=== PATIENT | male | born 1985 | race Caucasian/White ===

== ENCOUNTER 2023-06-17 19:54 | Emergency (ER) | payer OTHER, SELFPAY ==
[2023-06-17 20:01] VITALS: PULSE 90; RESP 18; TEMP 36.8; O2SAT 96; BMI 27.1
[2023-06-17 20:06] VITALS: O2SAT 96
--- NOTE | 2023-06-17 20:17 | ED.URI1 ---
HPI - URI/Sore Throat General Chief Complaint: Upper Respiratory Infection Stated Complaint: FEVER Time Seen by Provider: 06/17/23 20:09 Source: patient Source comment: Fever and headache History of Present Illness HPI Narrative: ill for one week with sinus congestion and cough productive green phlegm. States fever at home before coming to ED. States Girlfriend has COVID19 and his son has URI. Not short of breath. No nausea or abdominal pain MD elicited complaint: Reports fever, cough, rhinorrhea and nasal congestion Related Data Allergies Allergy/AdvReac Type Severity Reaction Status Date / Time No Known Drug Allergies Allergy Verified 06/17/23 20:01 Review of Systems ROS Status of ROS 10 or more systems reviewed and unremarkable except as noted in history and below [facility] Social History Smoking status: Current some day smoker Exam Constitutional Vital Signs, click to edit/add: Last Vital Signs Temp 98.3 F 06/17/23 20:01 Pulse 90 06/17/23 20:01 Resp 18 06/17/23 20:01 Pulse Ox 96 06/17/23 20:06 O2 Del Method Room Air 06/17/23 20:06 Common normals: no apparent distress, average body habitus, oriented x3, no limitations, healthy appearing, alert and well nourished [facility] Common normals: normocephalic and head/scalp atraumatic Other: left TM bulging Eye Common normals: EOMs intact bilaterally and conjunctivae normal Other: sinus tenderness Chest Other: diffuse mild coarse exp. breath sounds Cardio Common normals: regular rate, regular rhythm, S1 normal heart sound and S2 normal heart sound GI Common normals: Normal to inspection, nondistended, normoactive bowel sounds present, soft to palpation and non-tender Extremity Common normals: normal to inspection and full ROM Neuro Common normals: oriented x3, CN's II-XII intact bilaterally, moves all extremities and no focal motor deficits Psych Appearance: grossly normal Course Vital Signs Vital signs: Vital Signs Temperature 98.3 F 06/17/23 20:01 Pulse Rate 90 06/17/23 20:01 Respiratory Rate 18 06/17/23 20:01 Pulse Oximetry 96 06/17/23 20:01 Oxygen Delivery Method Room Air 06/17/23 20:01 Temperature 98.3 F 06/17/23 20:01 Pulse Rate 90 06/17/23 20:01 Respiratory Rate 18 06/17/23 20:01 Pulse Oximetry 96 06/17/23 20:06 Oxygen Delivery Method Room Air 06/17/23 20:06 MDM - URI/Sore Throat MDM Narrative Medical decision making narrative: presents with cough , sinus pressure and drainage . exam with exp bronchial breath sounds. cxray without pneumonia and CT facial bones without sinuitis. Patient informed of the working diagnosis of Bronchitis and left otitis media. Discharged home with an albuterol inhaler to help his cough and zithromax Lab Data Labs: Lab Results 06/17/23 06/17/23 Range/Units 20:15 20:48 WBC 8.9 (4.0-11.0) 10^3/uL RBC 5.85 (4.70-6.10) 10^6/uL Hgb 15.8 (14.0-18.0) g/dL Hct 47.2 (42.0-54.0) % MCV 80.7 (80.0-94.0) fL MCH 27.0 (25.9-34.0) pg MCHC 33.5 (29.9-35.2) g/dL RDW 13.5 (11.0-15.0) % Plt Count 336 (150-450) 10^3/uL MPV 9.6 (9.5-13.5) fL Neut % (Auto) 53.3 (43.0-75.0) % Lymph % (Auto) 35.4 (20.5-60.0) % [place] % (Auto) 7.0 (1.7-12.0) % Eos % (Auto) 2.8 (0.9-7.0) % Baso % (Auto) 0.9 (0.2-2.0) % Neut # (Auto) 4.7 (1.4-6.5) 10^3/uL Lymph # (Auto) 3.1 (1.2-3.8) 10^3/uL [place] # (Auto) 0.6 (0.3-0.8) 10^3/uL Eos # (Auto) 0.3 (0.0-0.7) 10^3/uL Baso # (Auto) 0.1 (0.0-0.1) 10^3/uL Abs Immat Gran (auto) 0.05 H (0.00-0.03) 10^3/uL Imm/Tot Granulo (auto) 0.6 H (0.0-0.5) % Sodium 140 (136-145) mmol/L Potassium 4.1 (3.5-5.1) mmol/L Chloride 102 (98-107) mmol/L Carbon Dioxide 29.9 (21.0-32.0) mmol/L Anion Gap 12.2 BUN 12.0 (7.0-18.0) mg/dL Creatinine 1.28 (0.70-1.30) mg/dL Est GFR ( Amer) >60 (>=60) Est GFR (Non-Af Amer) >60 (>=60) BUN/Creatinine Ratio 9.4 Glucose 99 (74-106) mg/dL Calcium 9.6 (8.5-10.1) mg/dL Adenovirus (PCR) Not detected (NOT DETECTE) C. pneumoniae DNA (PCR) Not detected (NOT DETECTE) Coronavirus Type OC43 Not detected (NOT DETECTE) Coronavirus Type HKU1 Not detected (NOT DETECTE) Coronavirus Type 229E Not detected (NOT DETECTE) Coronavirus Type NL63 Not detected (NOT DETECTE) Human Metapneumovir PCR Not detected (NOT DETECTE) M. pneumoniae (PCR) Not detected (NOT DETECTE) Parainfluenza PCR Not detected (NOT DETECTE) Parainfluenza 2 (PCR) Not detected (NOT DETECTE) Parainfluenza 3 (PCR) Not detected (NOT DETECTE) Parainfluenza 4 (PCR) Not detected (NOT DETECTE) RSV (RT-PCR) Not detected (NOT DETECTE) Entero/Rhino (PCR) Not detected (NOT DETECTE) SARS-CoV-2 (PCR) Not detected (NOT DETECTE) Bordetella pertussis (PCR) Not detected (NOT DETECTE) B parapertussis DNA PCR Not detected (NOT DETECTE) Influenza Type A (PCR) Not detected (NOT DETECTE) Influenza Type B (PCR) Not detected (NOT DETECTE) Discharge Plan Discharge Chief Complaint: Upper Respiratory Infection Clinical Impression: Upper respiratory infection, Otitis media, Bronchitis Patient Disposition: Home, Self-Care Instructions: Ear Infection (ED), Acute Bronchitis (ED) Additional Instructions: follow up with your doctor next week for recheck Stand Alone Forms: Portal Instructions Referrals: Physician,Non-Staff, MD [Primary Care Provider] - 1 week
--- NOTE | 2023-06-17 20:20 | XR_ITS ---
[address] [address] Patient Name: WADE ALLEN MRN: [id number] date: 1985 Sex: M Assigned Patient Location: ER Current Patient Location: ER Accession/Order Number: [id number] Exam Date: 06/17/2023 21:25 Report Date: 06/17/2023 21:11 At the request of: LATOYA CERON Procedure: XR chest 2V EXAMINATION: XR chest 2V HISTORY: Cough COMPARISON: None. TECHNIQUE: PA and lateral chest x-rays FINDINGS: The lung parenchyma is free of consolidation or infiltrate. No pneumothorax or pleural effusion. The cardiac, mediastinal and hilar contours are normal. The visualized osseous structures exhibit no gross abnormality. XR/XR chest 2V IMPRESSION: No acute cardiopulmonary abnormality. Electronically authenticated by: LOVE GARCIA Date: 06/17/2023 21:11
--- NOTE | 2023-06-17 20:20 | CT_ITS ---
The [address] [address] Patient Name: WADE ALLEN MRN: [id number] date: 1985 Sex: M Assigned Patient Location: ER Current Patient Location: ER Accession/Order Number: [id number] Exam Date: 06/17/2023 21:25 Report Date: 06/17/2023 21:23 At the request of: LATOYA CERON Procedure: CT facial bones wo con EXAM: CT facial bones wo con HISTORY: Productive cough and congestion since one week COMPARISON: None. TECHNIQUE: Contiguous axial CT images of the facial bones obtained without contrast. Coronal and sagittal reconstructions performed. Dose reduction techniques were achieved by using automated exposure control and/or adjustment of mA and/or kV according to patient size and/or use of iterative reconstruction technique. FINDINGS: The paranasal sinuses demonstrate no air-fluid level. There is minimal mucosal thickening of the bilateral maxillary, bilateral sphenoid sinuses and ethmoid air cells. There is a small mucous retention cyst within the left maxillary sinus. There is soft tissue density within the left middle ear cavity and bulging of the tympanic membrane. There is no erosion of the ossicles. The right middle ear cavity is clear. There is moderate rightward bony nasal septal deviation with a small bony spur. There are no acute fracture, destructive lesion or sclerosis of bony structures. The partially visualized mastoid air cells are clear. The globes are intact bilaterally. There is no proptosis. There is no retrobulbar hematoma. Small shotty lymph nodes are noted on both sides of the visualized neck, likely reactive. The soft tissues are unremarkable. The visualized intracranial contents appear normal. CT/CT facial bones wo con IMPRESSION: Soft tissue density within the left middle ear cavity and bulging of the tympanic membrane, suggestive of left-sided acute otitis media. No evidence of acute sinusitis. Mild chronic sinusitis, as described. Electronically authenticated by: TIFFANIE MANRIQUEZ Date: 06/17/2023 21:23
[2023-06-17 20:51] LABS: Adenovirus NOT DETECTED (NOT DETECTE); Bordetella parapertussis NOT DETECTED (NOT DETECTE); Coronavirus 229E NOT DETECTED (NOT DETECTE); Coronavirus HKU1 NOT DETECTED (NOT DETECTE); Coronavirus NL63 NOT DETECTED (NOT DETECTE); Coronavirus OC43 NOT DETECTED (NOT DETECTE); Human Metapneumovirus NOT DETECTED (NOT DETECTE); Human Rhinovirus/Enterovirus NOT DETECTED (NOT DETECTE); Influenza A NOT DETECTED (NOT DETECTE); Influenza B NOT DETECTED (NOT DETECTE); Mycoplasma pneumoniae NOT DETECTED (NOT DETECTE); Parainfluenza Virus 1 NOT DETECTED (NOT DETECTE); Parainfluenza Virus 2 NOT DETECTED (NOT DETECTE); Parainfluenza Virus 3 NOT DETECTED (NOT DETECTE); Parainfluenza Virus 4 NOT DETECTED (NOT DETECTE); Respiratory Syncytial Virus NOT DETECTED (NOT DETECTE); SARS-CoV-2 NOT DETECTED (NOT DETECTE)
[2023-06-17 20:59] LABS: Basophils Absolute Auto 0.1 10^3/uL (0.0-0.1); Basophils Percent Auto 0.9 % (0.2-2.0); Eosinophils Absolute Auto 0.3 10^3/uL (0.0-0.7); Eosinophils Percent Auto 2.8 % (0.9-7.0); Hematocrit 47.2 % (42.0-54.0); Hemoglobin 15.8 g/dL (14.0-18.0); Immature Granulocytes Abs Auto 0.05 10^3/uL (0.00-0.03); Immature Granulocytes Pct Auto 0.6 % (0.0-0.5); Lymphocytes Absolute Auto 3.1 10^3/uL (1.2-3.8); Lymphocytes Percent Auto 35.4 % (20.5-60.0); Mean Corpuscular HGB Conc 33.5 g/dL (29.9-35.2); Mean Corpuscular Volume 80.7 fL (80.0-94.0); Mean Platelet Volume 9.6 fL (9.5-13.5); Monocytes Absolute Auto 0.6 10^3/uL (0.3-0.8); Neutrophils Absolute Auto 4.7 10^3/uL (1.4-6.5); Neutrophils Percent Auto 53.3 % (43.0-75.0); Platelet Count 336 10^3/uL (150-450); Red Blood Count 5.85 10^6/uL (4.70-6.10); Red Cell Distribution Width 13.5 % (11.0-15.0); White Blood Count 8.9 10^3/uL (4.0-11.0)
[2023-06-17 21:09] LABS: Anion Gap 12.2; BUN Creatinine Ratio 9.4; Calcium 9.6 mg/dL (8.5-10.1); Carbon Dioxide 29.9 mmol/L (21.0-32.0); Chloride 102 mmol/L (98-107); Estimated GFR (African America >60 (>=60); Estimated GFR (Non-African Ame >60 (>=60); Glucose 99 mg/dL (74-106); Potassium 4.1 mmol/L (3.5-5.1); Sodium 140 mmol/L (136-145)
[2023-06-17] MEDS: AZITHROMYCIN 250 MG TABLET 500 MG PO (22:16)
[2023-06-17] MEDS: ALBUTEROL SULFATE 200 PUFF/6.7 GM INHALER IH (22:17)
== END 2023-06-17 22:23 | disposition home or self-care (01) ==
PROVIDERS: Emergency Provider Internal Medicine
DX: J40 Bronchitis, not specified as acute or chronic (principal); H66.92 Otitis media, unspecified, left ear; J06.9 Acute upper respiratory infection, unspecified; F17.210 Nicotine dependence, cigarettes, uncomplicated; Z20.822 Contact with and (suspected) exposure to COVID-19
CPT/HCPCS: 0202U; 36415; 70486; 71046; 80048; 85025; 99285

== ENCOUNTER 2023-09-07 13:18 | Emergency (ER) | payer OTHER, SELFPAY ==
[2023-09-07 13:21] VITALS: BP 149/95; PULSE 110; RESP 18; TEMP 36.8; O2SAT 98; BMI 32.5
--- OUTSIDE RECORDS SUMMARY | 2023-09-07 13:37 | XMS_ITS | CCD ---
Author Name Unknown Address [address] [place] [address] Organization [facility] Care Team Providers Care Land Development Manager Name Role Phone PAMELA, DR BERNADETTE Juarez Consulting Unavailabl e REQUEST, DR ORR LISTED Primary Care Unavaila brynn SANTIAGO, DR BERNADETTE Juarez Attending Unavailabl e PAMELA, DR BERNADETTE Juarez Admitting Unavailabl e STACI, DR EDDIE Young Consulting Unavailable Nola Proctor Unavailable Cassie Herring Unavailable Hailey Bustamante Unavailable Medications Current Medications Medication Drug Class(es) Dates Sig (Normalized) Sig (Original) amoxicillin 875 mg oral tablet (1 source) Penicillin-class Antibacterial Start: 05-06-2022 take 1 tablet by mouth every twelve hours Amoxicillin 875 MG 1 capsule Orally Twice a day for 7 day(s) Apr, Active ciprofloxacin 3 mg/ml / dexamethasone 1 mg/ml otic suspension (1 source) Corticosteroid, Quinolone Antimicrobial Start: 05-13-2022 Ciprodex 0.3-0.1 % 4 drops into affected ear Otic Twice a day for 7 days Apr, Active fluticasone propionate 0.05 mg/actuat metered dose nasal spray (2 sources) Corticosteroid Start: 05-06-2022 take 1 spray(s) nasal route once daily Flonase Allergy Relief 50 MCG/ACT 1 spray in each nostril Nasally Once a day for 14 day(s) Apr, Active Problems Active Problems Problem Classification Problem Date Documented Date Episodic/Chronic Fever of unknown origin (1 source) Fever, unspecified; Translations: [FEVER UNSPECIFIED] Onset: 03-26-2021 Episodic Immunizations and screening for infectious disease (5 sources) Contact with and (suspected) exposure to other viral communicable diseases; Translations: [Contact with and (suspected) exposure to other viral communicable diseases] Onset: 04-11-2022 Resolved: 04-11-2022 Episodic Other ear and sense organ disorders (1 source) Unspecified acute noninfective otitis externa, left ear Episodic Other lower respiratory disease (3 sources) Cough; Translations: [COUGH] Onset: 03-24-2021 Episodic Otitis media and related conditions (1 source) Other acute nonsuppurative otitis media, left ear Episodic Substance-related disorders (1 source) Cannabis use, unspecified, uncomplicated; Translations: [CANNABIS USE UNS UNCOMPLICATED] Onset: 03-26-2021 Episodic Viral infection (1 source) COVID-19; Translations: [COVID-19] Onset: 03-26-2021 Past or Other Problems Problem Classification Problem Date Documented Da te Episodic/Chronic Other upper respiratory infections (1 source) Acute upper respiratory infection, unspecified Onset: 04-11-2022 Resolved: 04-11-2022 Episodic Results Test Name Value Interpretation Reference Range Facility COVID Quick Testingon 2021 Result Negative [facility] Other COVID Quick Testingon 2021 Result Negative [facility] Other SYMPTOMATIC COVID-19 ANTIGEN on 03-24-2021 EUA Statement SEE BELOW Normal [facility] Comment on above: Result Comment: This test has not been F DA cleared or approved, but has been authorized by the FDA under an Emergency Use Authorization (EUA) for use by authorized laboratories certified under CLIA that meet the requirements to perform moderate or high complexity testing. This test has been authorized only for the detection of proteins from SARS-CoV-2, not for any other viruses or pathogens. The emergency use of this test is authorized for the duration of the declaration that circumstances exist justifying the authorization of emergency use of in vitro diagnostic tests for detection and/or diagnosis of Covid-19 under section 564(b)(1) of the Act, 21 U.S.C. 360bbb-3(b)(1), unless the declaration is terminated or authorization is revoked sooner. Performed By: #### C VDAGS #### [facility] [address] [place] [address] Sapphire Velazquez SARS-CoV-2 (COVID-19) RNA ALINA+probe Ql (Unsp spec) Positive Invalid Interpretation Code NEGATIVE [facility] Comment on above: Performed By: #### CVDAGS #### [facility] [address] [address] Saphpire Velazquez XR CHEST 1 Von 03-24-2021 XR CHEST 1 V EXAMINATION: XR CHEST 1 V HISTORY: SHORTNESS OF BREATH , fever, chills, aches COMPARISON: No relevant comparison available. FINDINGS: LUNGS: No significant pulmonary parenchymal abnormalities. VASCULATURE: No increased pulmonary vasculature. PLEURA: No pneumothorax, effusion, or pleural thickening. CARDIAC: No cardiomegaly or cardiac silhouette abnormality. MEDIASTINUM: No visible mass or adenopathy. BONES: No fracture or visible bone lesion. OTHER: Negative. IMPRESSION: 1. No acute cardiopulmonary process. Electronically authenticated by: EDDIE SMALL Date: 2021-03-24 12:56 Normal [facility] Vital Signs Date Time Vital Sign Value Performing Clinician Facility 05-13-2022 19:10-0400 Body height 177.8 cm Hailey Bustamante Other [facility] Other 05-13-2022 19:10-0400 Body mass index (BMI) [Ratio] 33.69 kg/m2 Hailey Bustamante Other [facility] Other 05-13-2022 19:10-0400 Body temperature 98.2 [degF] Hailey Bustamante Other [facility] Other 05-13-2022 19:10-0400 Body weight 106.51 kg Hailey Bustamante Other [facility] Other 05-13-2022 19:10-0400 Diastolic blood pressure 87 mm[Hg] Hailey Bustamante Other [facility] Other 05-13-2022 19:10-0400 Respiratory rate 18 /min Hailey Bustamante Other [facility] Other 05-13-2022 19:10-0400 SaO2% (BldA) [Mass fraction] 99 % Hailey Bustamante Other [facility] Other 05-13-2022 19:10-0400 Systolic blood pressure 134 mm[Hg] Hailey Bustamante Other [facility] Other 05-06-2022 19:20-0400 Body height 177.8 cm Cassie Herring Other [facility] Other 05-06-2022 19:20-0400 Body mass index (BMI) [Ratio] 33 kg/m2 Cassie Herring Other [facility] Other 05-06-2022 19:20-0400 Body temperature 98.9 [degF] Cassie Herring Other [facility] Other 05-06-2022 19:20-0400 Body weight 104.33 kg Cassie Herring Other [facility] Other 05-06-2022 19:20-0400 Respiratory rate 18 /min Cassie Herring Other [facility] Other 05-06-2022 19:20-0400 SaO2% (BldA) [Mass fraction] 98 % Cassie Herring Other [facility] Other 04-11-2022 19:30-0400 Body height 177.8 cm Nola Proctor Other [facility] Other 04-11-2022 19:30-0400 Body mass index (BMI) [Ratio] 30.85 kg/m2 Nola Proctor Other [facility] Other 04-11-2022 19:30-0400 Body weight 97.52 kg Nola Friasmond Other [facility] Other Encounters Encounter Date Encounter Type Care Provider Facility Start: 05-13-2022 End: 05-13-2022 ambulatory Hailey Bustamante Other [facility] Other Start: 05-13-2022 Office outpatient vi sit 15 minutes Hailey Bustamante [facility] Start: 05-06-2022 End: 05-06-2022 ambulatory Cassie Herring Other [facility] Other Start: 05-06-2022 Office outpatient vi sit 25 minutes Cassie Herring [facility] Start: 04-11-2022 End: 04-11-2022 ambulatory Noal Proctor Other [facility] Other Start: 04-11-2022 Office outpatient ne w 20 minutes Nola Proctor [facility] Start: 03-24-2021 End: 03-24-[address] BERNADETTE SANTIAGO Facility: Payers Date Payer Category Payer Unknown [id number] 1959 Self-pay [id number] Unknown [id number] Social History Date Type Detail Facility Sex Assigned At [facility] Other Evaluation note 05-13-2022 Note Date & Type Note Facility 05-13-2022 Evaluation note Encounter Date Diagnosis Assessment Notes Apr, Acute otitis externa of left ear, unspecified type (ICD-10 - H60.502) reviewed known allergies c pt, take rx as directed. otc pain relievers prn. dry warm compresses to affected ear. nothing in affected ear or submerging head under water until resolution of s/s. immediate eval if warning s/s fevers, intractable pain, loss of hearing, tinnitus, bloody or purulent drainage, which were discussed with pt while in clinic. otherwise f/u c PCP in 3-4 days if s/s persists or worsens. [facility] Other Evaluation note 05-06-2022 Note Date & Type Note Facility 05-06-2022 Evaluation note Encounter Date Diagnosis Assessment Notes Apr, Contact with and (suspected) exposure to other viral communicable diseases (ICD-10 - Z20.828) Apr, Acute otitis media with effusion of left ear (ICD-10 - H65.192) Advised patient that rapid COVID antigen test today in office was negative. Advised to take antibiotics as directed, complete entire course even if feeling better. Use rx of Flonase and OTC Zyrtec as directed. Supportive care, Tylenol/Motrin as needed for aches/fever, warm compress to affected ear, push fluids and rest. Follow up with PCP if symptoms do not improve in the next 2-3 days. Immediate eval for severe ear pain, severe headache, neck pain/stiffness , pain, erythema, or redness behind the ear, fever, N/V, hearing loss, fever, or any other new or concerning symptoms. Patient verbalizes understanding and is agreeable to treatment plan [facility] Other Evaluation note 04-11-2022 Note Date & Type Note Facility 04-11-2022 Evaluation note Encounter Date Diagnosis Assessment Notes Mar, Contact with and (suspected) exposure to other viral communicable diseases (ICD-10 - Z20.828) Mar, Viral upper respiratory infection (ICD-10 - J06.9) Viral upper respiratory infection: adult home care material was printed Drink plenty fluids, get plenty of rest. Take Tylenol or Motrin for aches pains or fevers. Follow-up with your family physician if no improvement in 2 to 3 days [facility] Other Summary Purpose Family History No Family History Records Found Advance Directives No Advanced Directives Records Found Additional Source Comments (unrecognized sect ion and content) No Status Records Found INFORMATION SOURCE (unrecogn ized section and content) DATE CREATED AUTHOR 03/27/2021 The [facility] Ho[facility] REASON FOR VISIT (unrecogniz ed section and content) BLACK EQUINOX, H/A, SORE THR OAT, B/A, FEVER, POSITIVE HOME TESTSINUS INFECTION EAR PRESUREleft ear pain FOR RECORDS PERTAINING TO PATIENTS WHO ARE OR HAVE BEEN ENROLLED IN A CHEMICAL DEPENDENCY/SUBSTANCEABUSE PROGRAM, SOME INFORMATION MAY BE OMITTED. This clinical summary was aggregated from multiple sources. Caution should be exercised in using it in the provision of clinical care. This summary normalizes information from multiple sources, and as a consequence, information in this document may materially change the coding, format and clinical context of patient data. In addition, data may be omitted in some cases. CLINICAL DECISIONS SHOULD BE BASED ON THE PRIMARY CLINICAL RECORDS. [employer] provides no warranty or guarantee of the accuracy or completeness of information in this document.
--- NOTE | 2023-09-07 13:39 | ED.URI1 ---
HPI - URI/Sore Throat General Chief Complaint: Upper Respiratory Infection Stated Complaint: sore throat Time Seen by Provider: 09/07/23 13:25 Source: patient Limitations: no limitations History of Present Illness HPI Narrative: Patient is a 38-year-old male who presents to the emergency department for 2-day history of sore throat and bilateral ear pain. He is concerned he may have strep throat because his girlfriend had it a month ago. He has had no objective fevers but states he had hot and cold chills this afternoon after laying in front of a space heater. He denies any significant congestion or cough. No medications taken prior to arrival. Related Data Previous Rx's Medication Instructions Recorded cetirizine 5 mg-pseudoephedrine ER 1 tab PO BID #10 tabs 09/07/23 120 mg tablet,extended release,12hr (Zyrtec-D) Allergies Allergy/AdvReac Type Severity Reaction Status Date / Time No Known Drug Allergies Allergy Verified 09/07/23 13:21 Review of Systems ROS Constitutional Denies: fever or chills Ears, nose, mouth, and throat Reports: throat pain and ear pain; Denies: nasal congestion Cardiovascular Denies: chest pain Respiratory Denies: shortness of breath or cough Gastrointestinal Reports: diarrhea; Denies: nausea or vomiting Musculoskeletal Denies: back pain Integumentary/Breast Denies: rash Neurological Denies: headache Hematologic/Lymphatic Denies: easy bruising or easy bleeding [facility] Social History Smoking status: Current some day smoker Exam Narrative Exam Narrative: Gen.: Awake, alert, in no distress Head: Normocephalic, atraumatic ENT: Moist mucous membranes, Bilateral TMs are bulging with no erythema or injection. Mild tonsillar edema that is symmetric, no exudate. Uvula midline with airway widely open and patent. No trismus or drooling. Clear speech. Respiratory: No respiratory distress, lungs clear bilaterally Cardio: Regular rate and rhythm Extremities: Moves extremities equally Psych: Normal mood and affect Neuro: No focal neuro deficit Skin: Warm, dry, intact Constitutional Vital Signs, click to edit/add: Last Vital Signs Temp 98.2 F 09/07/23 13:21 Pulse 99 H 09/07/23 14:07 Resp 20 09/07/23 14:07 BP 138/88 09/07/23 14:07 Pulse Ox 98 09/07/23 14:07 O2 Del Method Room Air 09/07/23 13:21 Course Vital Signs Vital signs: Vital Signs Temperature 98.2 F 09/07/23 13:21 Pulse Rate 110 H 09/07/23 13:21 Respiratory Rate 18 09/07/23 13:21 Blood Pressure 149/95 H 09/07/23 13:21 Pulse Oximetry 98 09/07/23 13:21 Oxygen Delivery Method Room Air 09/07/23 13:21 Temperature 98.2 F 09/07/23 13:21 Pulse Rate 99 H 09/07/23 14:07 Respiratory Rate 20 09/07/23 14:07 Blood Pressure 138/88 09/07/23 14:07 Pulse Oximetry 98 09/07/23 14:07 Oxygen Delivery Method Room Air 09/07/23 13:21 MDM - URI/Sore Throat MDM Narrative Medical decision making narrative: Swabs negative for strep, COVID, influenza.Patient treated with Decadron in the ER. He is discharged home with viral instructions for pharyngitis and upper respiratory infection. He is given BMX solution and Zyrtec-D for home. Follow-up with PCP and return to the ER if symptoms change or worsen Medical Records Attestation: I reviewed the patient's medical records. Lab Data Attestation: I reviewed the patient's lab results. Labs: Lab Results 09/07/23 09/07/23 Range/Units 13:26 13:29 Influenza Type A Ag Negative Influenza Type B Ag Negative SARS-CoV-2 Ag (CV2AG) Negative (NEGATIVE) Streptococcus Screen Negative Discharge Plan Discharge Chief Complaint: Upper Respiratory Infection Clinical Impression: Upper respiratory infection, Pharyngitis Patient Disposition: Home, Self-Care Time of Disposition Decision: 14:05 Condition: Good Prescriptions / Home Meds: New cetirizine-pseudoephedrine [Zyrtec-D] 5-120 mg tablet extended release 12 hr 1 tab PO BID Qty: 10 0RF Instructions: Pharyngitis (ED), Upper Respiratory Infection (ED) Stand Alone Forms: Portal Instructions Referrals: Physician,Non-Staff, MD [Primary Care Provider] - 1 week Discharge Date/Time: 09/07/23 14:11
[2023-09-07] MEDS: DEXAMETHASONE SOD PHOS 10 MG/ML VIAL PO (13:47)
[2023-09-07 13:52] LABS: Influenza Virus A Antigen Negative
[2023-09-07 13:53] LABS: Influenza Virus B Antigen Negative; Internal Control Within Normal Limits; SARS-CoV-2 Ag NEGATIVE (NEGATIVE)
[2023-09-07 14:02] LABS: Internal Control Within Normal Limits; Strep A Antigen Screen Negative
[2023-09-07 14:07] VITALS: BP 138/88; PULSE 99; RESP 20; O2SAT 98
== END 2023-09-07 14:11 | disposition home or self-care (01) ==
PROVIDERS: Physician Assistant; Emergency Provider Emergency Medicine
DX: J02.9 Acute pharyngitis, unspecified (principal); J06.9 Acute upper respiratory infection, unspecified; F17.200 Nicotine dependence, unspecified, uncomplicated
CPT/HCPCS: 87070; 87804; 87811; 87880; 99283; J1100

== ENCOUNTER 2024-01-31 06:56 | Emergency (ER) | payer SELFPAY ==
[2024-01-31 07:01] VITALS: BP 156/92; PULSE 83; TEMP 36.7; O2SAT 98; BMI 31.2
--- OUTSIDE RECORDS SUMMARY | 2024-01-31 07:06 | XMS_ITS | CCD ---
Author Organization [facility] Care Team Providers Care Service Superintendent Name Role Phone PAMELA, DR BERNADETTE Juarez Consulting Unavailabl e REQUEST, DR ORR LISTED Primary Care Aime SANTIAGO, DR BERNADETTE Juarez Attending Unavailabl e [...] Facility COVID Quick Testingon 2021 Result Negative [facility] Other COVID Quick Testingon 2021 Result Negative [facility] Other SYMPTOMATIC COVID-19 ANTIGEN on 03-24-2021 EUA Statement SEE BELOW Normal [facility] Comment on above: Result Comment: This [...] sooner. Performed By: #### C VDAGS #### [facility] [address] [place] [address] Sapphire Velazquez SARS-CoV-2 (COVID-19) RNA ALINA+probe Ql (Unsp spec) Positive Invalid Interpretation Code NEGATIVE [facility] Comment on above: Performed By: #### CVDAGS #### [facility] [address] [id number] Sapphire Velazquez XR CHEST 1 Von 03-24-2021 XR [...] EDDIE SMALL Date: 2021-03-24 12:56 Normal [facility] Vital Signs Date Time Vital Sign Value Performing Clinician Facility 05-13-2022 19:10-0400 Body height 177.8 cm Hailey Bustamante Other [facility] Other 05-13-2022 19:10-0400 Body mass index (BMI) [Ratio] 33.69 kg/m2 Hailey Bustamante Other [facility] Other 05-13-2022 19:10-0400 Body temperature 98.2 [degF] Hailey Bustamante Other [facility] Other 05-13-2022 19:10-0400 Body weight 106.51 kg Hailey Bustamante Other [facility] Other 05-13-2022 19:10-0400 Diastolic blood pressure 87 mm[Hg] Hailey Bustamante Other [facility] Other 05-13-2022 19:10-0400 Respiratory rate 18 /min Hailey Bustamante Other [facility] Other 05-13-2022 19:10-0400 SaO2% (BldA) [Mass fraction] 99 % Hailey Bustamante Other [facility] Other 05-13-2022 19:10-0400 Systolic blood pressure 134 mm[Hg] Hailey Bustamante Other [facility] Other 05-06-2022 19:20-0400 Body height 177.8 cm Cassie Herring Other [facility] Other 05-06-2022 19:20-0400 Body mass index (BMI) [Ratio] 33 kg/m2 Cassie Herring Other [facility] Other 05-06-2022 19:20-0400 Body temperature 98.9 [degF] Cassie Herring Other [facility] Other 05-06-2022 19:20-0400 Body weight 104.33 kg Cassie Herring Other [facility] Other 05-06-2022 19:20-0400 Respiratory rate 18 /min Cassie Herring Other [facility] Other 05-06-2022 19:20-0400 SaO2% (BldA) [Mass fraction] 98 % Cassie Herring Other [facility] Other 04-11-2022 19:30-0400 Body height 177.8 cm Nola Proctor Other [facility] Other 04-11-2022 19:30-0400 Body mass index (BMI) [Ratio] 30.85 kg/m2 Nola Proctor Other [facility] Other 04-11-2022 19:30-0400 Body weight 97.52 kg Nola Proctor Other [facility] Other Encounters Encounter Date Encounter Type Care Provider Facility Start: 05-13-2022 End: 05-13-2022 ambulatory Hailey Bustamante Other [facility] Other Start: 05-13-2022 Office outpatient vi sit 15 minutes Hailey Bustamante [facility] Start: 05-06-2022 End: 05-06-2022 ambulatory Cassie Herring Other [facility] Other Start: 05-06-2022 Office outpatient vi sit 25 minutes Cassie Herring [facility] Start: 04-11-2022 End: 04-11-2022 ambulatory Nola Proctor Other [facility] Other Start: 04-11-2022 Office outpatient ne w 20 minutes Nolakari Proctor [facility] Start: 03-24-2021 End: 03-24-[address] BERNADETTE SANTIAGO Facility:[facility] Payers Date Payer Category Payer Unknown [id number] 1959 Self-pay [id number] Unknown [id number] Social History Date Type Detail Facility Sex Assigned At [facility] Other Evaluation note 05-13-2022 Note Date & [...] 3-4 days if s/s persists or worsens. [facility] Other Evaluation note 05-06-2022 Note Date & [...] understanding and is agreeable to treatment plan [facility] Other Evaluation note 04-11-2022 Note Date & [...] no improvement in 2 to 3 days [facility] Other Summary Purpose Family History No Family History Records Found Advance Directives No Advanced Directives Records Found Additional Source Comments (unrecognized sect ion and content) No Status Records Found INFORMATION SOURCE (unrecogn ized section and content) DATE CREATED AUTHOR 03/27/2021 [facility] hern[facility] REASON FOR VISIT (unrecogniz ed section and [...] BE BASED ON THE PRIMARY CLINICAL RECORDS. [employer] provides no warranty or guarantee of the accuracy or completeness of information in this document.
--- NOTE | 2024-01-31 07:28 | CT_ITS ---
[address] [address] Patient Name: WADE ALLEN MRN: [id number] date: 1985 Sex: M Assigned Patient Location: ER Current Patient Location: ER Accession/Order Number: [id number] Exam Date: 01/31/2024 07:38 Report Date: 01/31/2024 08:06 At the request of: LISS TORRES Procedure: CT lumbar spine wo con EXAMINATION: CT pelvis wo con, CT lumbar spine wo con HISTORY: fall, pelvic pain COMPARISON: No relevant comparison available. TECHNIQUE: Multi-planar CT images were created without IV contrast. Dose reduction techniques were achieved by using automated exposure control and/or adjustment of mA and/or kV according to patient size and/or use of iterative reconstruction technique. Pelvis: FINDINGS: URINARY BLADDER: No visible focal wall thickening, lesion, or calculus. LYMPH NODES: No adenopathy. BOWEL: No abnormality of the visible bowl. PELVIC ORGANS: No visible mass. Pelvic organs appropriate for patient age. ANTERIOR WALL: No hernia. BONES: No bone lesion or fracture. OTHER: Negative. CT/CT lumbar spine wo con IMPRESSION: No acute traumatic abnormality Lumbar spine: FINDINGS: PARASPINAL AREA: Normal with no visible mass. DISCS: Disc space narrowing L5-S1 mild posterior disc/osteophyte complex. BONES: Normal alignment with no acute fracture or spondylolisthesis. Mild degenerative spondylosis and facet osteoarthropathy OTHER: Negative. IMPRESSION: No acute traumatic abnormality Electronically authenticated by: LOVE CERVANTES Date: 01/31/2024 08:06
--- NOTE | 2024-01-31 07:28 | CT_ITS ---
[address] [address] Patient Name: WADE ALLEN MRN: [id number] date: 1985 Sex: M Assigned Patient Location: ER Current Patient Location: ER Accession/Order Number: [id number] Exam Date: 01/31/2024 07:38 Report Date: 01/31/2024 08:06 At the request of: LISS TORRES Procedure: CT pelvis wo con EXAMINATION: CT pelvis wo con, CT lumbar spine wo con HISTORY: fall, pelvic pain COMPARISON: No relevant comparison available. TECHNIQUE: Multi-planar CT images were created without IV contrast. Dose reduction techniques were achieved by using automated exposure control and/or adjustment of mA and/or kV according to patient size and/or use of iterative reconstruction technique. Pelvis: FINDINGS: URINARY BLADDER: No visible focal wall thickening, lesion, or calculus. LYMPH NODES: No adenopathy. BOWEL: No abnormality of the visible bowl. PELVIC ORGANS: No visible mass. Pelvic organs appropriate for patient age. ANTERIOR WALL: No hernia. BONES: No bone lesion or fracture. OTHER: Negative. CT/CT pelvis wo con IMPRESSION: No acute traumatic abnormality Lumbar spine: FINDINGS: PARASPINAL AREA: Normal with no visible mass. DISCS: Disc space narrowing L5-S1 mild posterior disc/osteophyte complex. BONES: Normal alignment with no acute fracture or spondylolisthesis. Mild degenerative spondylosis and facet osteoarthropathy OTHER: Negative. IMPRESSION: No acute traumatic abnormality Electronically authenticated by: LOVE CERVANTES Date: 01/31/2024 08:06
--- NOTE | 2024-01-31 07:39 | ED.GENADUL1 ---
HPI HPI - General Adult General Chief complaint: Extremity Injury, Lower Stated complaint: LEFT HIP PAIN Time Seen by Provider: 01/31/24 07:13 Source: patient Mode of arrival: walk-in Limitations: no limitations History of Present Illness HPI narrative: Patient presents to ED complaining of left buttock pain. He states he fell on Monday in the shower onto his left hip and buttock area. He states he initially had some low back pain with it and pain in the hip. States the low back pain has gotten better but he still has a lot of buttock and hip pain. He said the pain travels down to the back of his knee and he does get muscle spasms with this as well. Normal distal pulses and sensation. Patient is able to ambulate but does have pain that comes and goes. He thought this would get better but it just has not so he came in for evaluation. He denies any other injury in the fall. No external bruises evident. Related Data Previous Rx's ?Medication ?Instructions ?Recorded methylprednisolone 4 mg tablets in 4 mg PO DAILY #21 ea 01/31/24 a dose pack (Medrol (Darryl)) Allergies Allergy/AdvReac Type Severity Reaction Status Date / Time No Known Drug Allergies Allergy Verified 01/31/24 07:03 Opioid HPI Opioid Management Most Recent Opioid Data: Last Pain Scale 5 01/31/24 07:10 Review of Systems ROS Status of ROS 10 or more systems reviewed and unremarkable except as noted in history and below [facility] Social History Smoking status: Current some day smoker Exam Narrative Exam Narrative: General: alert, no acute distress Cardiovascular: regular rate and rhythm, normal peripheral perfusion. Respiratory: Lungs CTA, respirations non labored. Extremities: no deformity, Tenderness to palpation in the left ischial spine and piriformis area. Normal distal pulses and sensation and strength in the left lower extremity. No abdominal pain Neurological: oriented x 4, LOC appropriate for age. Constitutional Vital Signs, click to edit/add: Last Vital Signs Temp 98.0 F 01/31/24 07:01 Pulse 83 01/31/24 07:01 Resp 16 01/31/24 07:01 BP 156/92 H 01/31/24 07:01 Pulse Ox 98 01/31/24 07:01 O2 Del Method Room Air 01/31/24 07:01 Course Vital Signs Vital signs: Vital Signs Temperature 98.0 F 01/31/24 07:01 Pulse Rate 83 01/31/24 07:01 Respiratory Rate 16 01/31/24 07:01 Blood Pressure 156/92 H 01/31/24 07:01 Pulse Oximetry 98 01/31/24 07:01 Oxygen Delivery Method Room Air 01/31/24 07:01 Temperature 98.0 F 01/31/24 07:01 Pulse Rate 83 01/31/24 07:01 Respiratory Rate 16 01/31/24 07:01 Blood Pressure 156/92 H 01/31/24 07:01 Pulse Oximetry 98 01/31/24 07:01 Oxygen Delivery Method Room Air 01/31/24 07:01 Medical Decision Making MDM Narrative Medical decision making narrative: Patient CTs show no acute abnormality. No vertebral body compression fracture, no muscle hematoma, no other fracture identified. Will send the patient home on a [employer] Dosep[employer]. Instructed to take Tylenol Motrin and use heating pads. Patient is comfortable care plan for Differential Diagnosis Differential Diagnosis: Compression fracture, hematoma, pelvic fracture Imaging Data CT scan - pelvis: Radiologist's impression: ITS Impressions Lumbar Spine CT 01/31/24 07:28 IMPRESSION: No acute traumatic abnormality Lumbar spine: FINDINGS: PARASPINAL AREA: Normal with no visible mass. DISCS: Disc space narrowing L5-S1 mild posterior disc/osteophyte complex. BONES: Normal alignment with no acute fracture or spondylolisthesis. Mild degenerative spondylosis and facet osteoarthropathy OTHER: Negative. IMPRESSION: No acute traumatic abnormality Electronically authenticated by: LOVE CERVANTES Date: 01/31/2024 08:[address] 01/31/24 07:28 IMPRESSION: No acute traumatic abnormality Lumbar spine: FINDINGS: PARASPINAL AREA: Normal with no visible mass. DISCS: Disc space narrowing L5-S1 mild posterior disc/osteophyte complex. BONES: Normal alignment with no acute fracture or spondylolisthesis. Mild degenerative spondylosis and facet osteoarthropathy OTHER: Negative. IMPRESSION: No acute traumatic abnormality Electronically authenticated by: LOVE CERVANTES Date: 01/31/2024 08:06 Discharge Plan Discharge Stand Alone Forms: Portal Instructions Chief Complaint: Extremity Injury, Lower Clinical Impression: Sciatic leg pain, Contusion of hip Patient Disposition: Home, Self-Care Time of Disposition Decision: 08:15 Condition: Good Mode of Transportation: Private Vehicle Prescriptions / Home Meds: New methylprednisolone [Medrol (Darryl)] 4 mg tablets,dose pack 4 mg PO DAILY Qty: 21 0RF Print Language: Kenyan Instructions: Sciatica (ED), Hip Contusion (ED) Referrals: Physician,Non-Staff, MD [Primary Care Provider] - 1 week
[2024-01-31 08:37] VITALS: BP 144/86; PULSE 88; O2SAT 100
== END 2024-01-31 08:38 | disposition home or self-care (01) ==
PROVIDERS: Emergency Provider Emergency Medicine
DX: S70.02XA Contusion of left hip, initial encounter (principal); M54.30 Sciatica, unspecified side; W18.2XXA Fall in (into) shower or empty bathtub, initial encounter; F17.200 Nicotine dependence, unspecified, uncomplicated
CPT/HCPCS: 72131; 72192; 99284

== ENCOUNTER 2024-07-16 15:29 | Emergency (ER) | payer OTHER, SELFPAY ==
[2024-07-16 15:33] VITALS: BP 147/100; PULSE 87; TEMP 36.6; O2SAT 98; BMI 31.2
--- OUTSIDE RECORDS SUMMARY | 2024-07-16 15:43 | XMS_ITS | CCD ---
Author Organization [facility] Care Team Providers Care Bacon Skinner Name Role Phone PAMELA, DR BERNADETTE Juarez Consulting Unavailabl e REQUEST, DR ORR LISTED Primary Care Aime SANTIAOG, DR BERNADETTE Juarez Attending Unavailabl e PAMELA, [...] Facility COVID Quick Testingon 2021 Result Negative [facility] Other COVID Quick Testingon 2021 Result Negative [facility] Other SYMPTOMATIC COVID-19 ANTIGEN on 03-24-2021 EUA Statement SEE BELOW Normal [facility] Comment on above: Result Comment: This test [...] sooner. Performed By: #### C VDAGS #### [facility] [address] [place] [address] Sapphire Velazquez SARS-CoV-2 (COVID-19) RNA ALINA+probe Ql (Unsp spec) Positive Invalid Interpretation Code NEGATIVE [facility] Comment on above: Performed By: #### CVDAGS #### [facility] [address] [id number] Sapphire Velazquez XR CHEST 1 Von 03-24-2021 [...] EDDIE SMALL Date: 2021-03-24 12:56 Normal [facility] Vital Signs Date Time Vital Sign Value Performing Clinician Facility 05-13-2022 19:10-0400 Body height 177.8 cm Hailey Bustamante Other [facility] Other 05-13-2022 19:10-0400 Body mass index (BMI) [Ratio] 33.69 kg/m2 Hailey Bustamante Other [facility] Other 05-13-2022 19:10-0400 Body temperature 98.2 [degF] Hailey Bustamante Other [facility] Other 05-13-2022 19:10-0400 Body weight 106.51 kg Hailey Bustamante Other [facility] Other 05-13-2022 19:10-0400 Diastolic blood pressure 87 mm[Hg] Hailey Bustamanet Other [facility] Other 05-13-2022 19:10-0400 Respiratory rate 18 /min Hailey Bustamante Other [facility] Other 05-13-2022 19:10-0400 SaO2% (BldA) [Mass fraction] 99 % Hailey Bustamante Other [facility] Other 05-13-2022 19:10-0400 Systolic blood pressure 134 mm[Hg] Hailey Bustamante Other [facility] Other 05-06-2022 19:20-0400 Body height 177.8 cm Cassie Herring Other [facility] Other 05-06-2022 19:20-0400 Body mass index (BMI) [Ratio] 33 kg/m2 Cassie Herring Other [facility] Other 05-06-2022 19:20-0400 Body temperature 98.9 [degF] Cassie Herring Other [facility] Other 05-06-2022 19:20-0400 Body weight 104.33 kg Cassie Herring Other [facility] Other 05-06-2022 19:20-0400 Respiratory rate 18 /min Cassie Herring Other [facility] Other 05-06-2022 19:20-0400 SaO2% (BldA) [Mass fraction] 98 % Cassie Herring Other [facility] Other 04-11-2022 19:30-0400 Body height 177.8 cm Nola Proctor Other [facility] Other 04-11-2022 19:30-0400 Body mass index (BMI) [Ratio] 30.85 kg/m2 Nola Proctor Other [facility] Other 04-11-2022 19:30-0400 Body weight 97.52 kg Nola Proctor Other [facility] Other Encounters Encounter Date Encounter Type Care Provider Facility Start: 05-13-2022 End: 05-13-2022 ambulatory Hailey Bustamante Other [facility] Other Start: 05-13-2022 Office outpatient vi sit 15 minutes Hailey Bustamnate [facility] Start: 05-06-2022 End: 05-06-2022 ambulatory Cassie Herring Other [facility] Other Start: 05-06-2022 Office outpatient vi sit 25 minutes Cassie Herring [facility] Start: 04-11-2022 End: 04-11-2022 ambulatory Nola Proctor Other [facility] Other Start: 04-11-2022 Office outpatient ne w 20 minutes Nolakari Proctor [facility] Start: 03-24-2021 End: 03-24-[address] BERNADETTE SANTIAGO Facility:[facility] Payers Date Payer Category Payer Unknown [id number] 1959 Self-pay [id number] Unknown [id number] Social History Date Type Detail Facility Sex Assigned At [facility] Other Evaluation note 05-13-2022 Note Date & [...] 3-4 days if s/s persists or worsens. [facility] Other Evaluation note 05-06-2022 Note Date & [...] understanding and is agreeable to treatment plan [facility] Other Evaluation note 04-11-2022 Note Date & [...] no improvement in 2 to 3 days [facility] Other Summary Purpose Family History No Family History Records Found Advance Directives No Advanced Directives Records Found Additional Source Comments (unrecognized sect ion and content) No Status Records Found INFORMATION SOURCE (unrecogn ized section and content) DATE CREATED AUTHOR 03/27/2021 [facility] Sandie hernandez REASON FOR VISIT (unrecogniz ed [...] BE BASED ON THE PRIMARY CLINICAL RECORDS. [employer] provides no warranty or guarantee of the accuracy or completeness of information in this document.
--- NOTE | 2024-07-16 15:49 | ED.URI1 ---
HPI - URI/Sore Throat General Chief Complaint: Upper Respiratory Infection Stated Complaint: COVID+ 07/13/24 Time Seen by Provider: 07/16/24 15:36 Source: patient History of Present Illness HPI Narrative: 38 year old male presents to the ED for cough, congestion, chills, fatigue, fever, body aches, SHELLEY, diarrhea. Onset was 3 days ago; he reports a positive home Covid-19 test. He is here for a work note. He has been taking Dayquil, Tylenol, and Paxlovid. Denies abd pain, emesis. Pt appears in no acute distress. Related Data Home Medications ?Medication ?Instructions ?Recorded ?Confirmed No Known Home Medications 07/16/24 07/16/24 Allergies Allergy/AdvReac Type Severity Reaction Status Date / Time No Known Drug Allergies Allergy Verified 01/31/24 07:03 Review of Systems ROS Constitutional Reports: fever and chills Ears, nose, mouth, and throat Reports: throat pain; Denies: neck pain Cardiovascular Denies: chest pain Respiratory Reports: shortness of breath and cough; Denies: wheezing or stridor Gastrointestinal Reports: diarrhea; Denies: abdominal pain, nausea or vomiting Musculoskeletal Denies: back pain or neck pain Integumentary/Breast Denies: rash Neurological Reports: headache; Denies: numbness in extremities, weakness in extremities or dizziness PF[facility] Social History Smoking status: Current some day smoker Exam Constitutional Vital Signs, click to edit/add: Last Vital Signs Temp 97.8 F 07/16/24 15:33 Pulse 87 07/16/24 15:33 Resp 18 07/16/24 15:33 BP 147/100 H 07/16/24 15:33 Pulse Ox 98 07/16/24 15:33 O2 Del Method Room Air 07/16/24 15:33 Common normals: no apparent distress and oriented x3 General appearance: cooperative; not in distress HENMT Face and sinus: normal facial exam Nose: nasal discharge External ear: external ears normal Mouth: oral and palatal mucosa normal Eye Common normals: conjunctivae normal and no scleral icterus Neck & C-Spine Common normals: supple Chest Chest: symmetrical chest wall rise Respiratory Common normals: normal respiratory effort, no retractions, no use of accessory muscles and clear to auscultation bilaterally Effort & inspection: able to speak in complete sentences and symmetric chest movement Cardio Common normals: regular rate and regular rhythm Neuro Common normals: oriented x3 and moves all extremities Sensorium/orientation: awake and alert Speech: speech normal Gait (neuro): normal gait Course Vital Signs Vital signs: Vital Signs Temperature 97.8 F 07/16/24 15:33 Pulse Rate 87 07/16/24 15:33 Respiratory Rate 18 07/16/24 15:33 Blood Pressure 147/100 H 07/16/24 15:33 Pulse Oximetry 98 07/16/24 15:33 Oxygen Delivery Method Room Air 07/16/24 15:33 Temperature 97.8 F 07/16/24 15:33 Pulse Rate 87 07/16/24 15:33 Respiratory Rate 18 07/16/24 15:33 Blood Pressure 147/100 H 07/16/24 15:33 Pulse Oximetry 98 07/16/24 15:33 Oxygen Delivery Method Room Air 07/16/24 15:33 MDM - URI/Sore Throat MDM Narrative Medical decision making narrative: Pt reported a positive home Covid-19 test 3 days ago. LS were clear. Oxygen saturation was unremarkable. He has been taking OTC medication and Paxlovid for his sx. He is here today requesting a work excuse. He was encouraged to follow up with a pcp for a recheck, further evaluation and treatment. Medical Records Attestation: I reviewed the patient's medical records. Discharge Plan Discharge Chief Complaint: Upper Respiratory Infection Clinical Impression: COVID-19 Patient Disposition: Home, Self-Care Time of Disposition Decision: 15:51 Condition: Good Mode of Transportation: Private Vehicle Prescriptions / Home Meds: No Action No Known Home Medications Print Language: Tamazight Instructions: COVID-19 (Coronavirus Disease 2019) (ED), COVID-19: Slow the Coronavirus Spread (ED), How to Recover from COVID-19 at Home (ED) Additional Instructions: Return to the ER for worsening symptoms. Referrals: Physician,Non-Staff, MD [Primary Care Provider] - 1 week Discharge Date/Time: 07/16/24 15:58
== END 2024-07-16 15:58 | disposition home or self-care (01) ==
PROVIDERS: Emergency Provider Emergency Medicine
DX: U07.1 COVID-19 (principal)
CPT/HCPCS: 99281

== ENCOUNTER 2025-02-24 00:12 | Emergency (ER) | payer SELFPAY ==
[2025-02-24 00:16] VITALS: BP 145/86; PULSE 89; TEMP 36.7; O2SAT 99; BMI 29.8
--- OUTSIDE RECORDS SUMMARY | 2025-02-24 00:22 | XMS_ITS | CCD ---
Author Organization [facility] Care Team Providers Care Armor Reconnaissance Specialist Name Role Phone PAMELA, DR BERNADETTE Juarez [...] Facility COVID Quick Testingon 2021 Result Negative [facility] Other COVID Quick Testingon 2021 Result Negative [facility] Other SYMPTOMATIC COVID-19 ANTIGEN on 03-24-2021 EUA Statement SEE BELOW Normal [facility] Comment on above: Result Comment: This test [...] sooner. Performed By: #### C VDAGS #### [facility] [address] [place] [address] Sapphire Velazquez SARS-CoV-2 (COVID-19) RNA ALINA+probe Ql (Unsp spec) Positive Invalid Interpretation Code NEGATIVE [facility] Comment on above: Performed By: #### CVDAGS #### [facility] [address] [id number] Sapphire Velazquez XR CHEST 1 Von 03-24-2021 [...] EDDIE SMALL Date: 2021-03-24 12:56 Normal [facility] Vital Signs Date Time Vital Sign Value Performing Clinician Facility 05-13-2022 19:10-0400 Body height 177.8 cm Hailey Bustamante Other [facility] Other 05-13-2022 19:10-0400 Body mass index (BMI) [Ratio] 33.69 kg/m2 Hailey Bustamante Other [facility] Other 05-13-2022 19:10-0400 Body temperature 98.2 [degF] Hailey Bustamante Other [facility] Other 05-13-2022 19:10-0400 Body weight 106.51 kg Hailey Bustamante Other [facility] Other 05-13-2022 19:10-0400 Diastolic blood pressure 87 mm[Hg] Hailey Bustamante Other [facility] Other 05-13-2022 19:10-0400 Respiratory rate 18 /min Hailey Bustamante Other [facility] Other 05-13-2022 19:10-0400 SaO2% (BldA) [Mass fraction] 99 % Hailey Bustamante Other [facility] Other 05-13-2022 19:10-0400 Systolic blood pressure 134 mm[Hg] Hailey Bustamante Other [facility] Other 05-06-2022 19:20-0400 Body height 177.8 cm Cassie Herring Other [facility] Other 05-06-2022 19:20-0400 Body mass index (BMI) [Ratio] 33 kg/m2 Cassie Herring Other [facility] Other 05-06-2022 19:20-0400 Body temperature 98.9 [degF] Cassie Herring Other [facility] Other 05-06-2022 19:20-0400 Body weight 104.33 kg Cassie Herring Other [facility] Other 05-06-2022 19:20-0400 Respiratory rate 18 /min Cassie Herring Other [facility] Other 05-06-2022 19:20-0400 SaO2% (BldA) [Mass fraction] 98 % Cassie Herring Other [facility] Other 04-11-2022 19:30-0400 Body height 177.8 cm Nola Proctor Other [facility] Other 04-11-2022 19:30-0400 Body mass index (BMI) [Ratio] 30.85 kg/m2 Nola Proctor Other [facility] Other 04-11-2022 19:30-0400 Body weight 97.52 kg Nola Proctor Other [facility] Other Encounters Encounter Date Encounter Type Care Provider Facility Start: 05-13-2022 End: 05-13-2022 ambulatory Hailey Bustamante Other [facility] Other Start: 05-13-2022 Office outpatient vi sit 15 minutes Hailey Bustamante [facility] Start: 05-06-2022 End: 05-06-2022 ambulatory Cassie Herring Other [facility] Other Start: 05-06-2022 Office outpatient vi sit 25 minutes Cassie Herring [facility] Start: 04-11-2022 End: 04-11-2022 ambulatory Nola Proctor Other [facility] Other Start: 04-11-2022 Office outpatient ne w 20 minutes Nolakari Proctor [facility] Start: 03-24-2021 End: 03-24-[address] BERNADETTE SANTIAGO Facility:[facility] Payers Date Payer Category Payer Unknown [id number] 1959 Self-pay [id number] Unknown [id number] Social History Date Type Detail Facility Sex Assigned At [facility] Other Evaluation note 05-13-2022 Note Date & [...] 3-4 days if s/s persists or worsens. [facility] Other Evaluation note 05-06-2022 Note Date & [...] understanding and is agreeable to treatment plan [facility] Other Evaluation note 04-11-2022 Note Date & [...] no improvement in 2 to 3 days [facility] Other Summary Purpose Family History No Family History Records Found Advance Directives No Advanced Directives Records Found Additional Source Comments (unrecognized sect ion and content) No Status Records Found INFORMATION SOURCE (unrecogn ized section and content) DATE CREATED AUTHOR 03/27/2021 [facility] Sandie hernandez REASON FOR VISIT (unrecogniz ed [...] BE BASED ON THE PRIMARY CLINICAL RECORDS. [employer] provides no warranty or guarantee of the accuracy or completeness of information in this document.
--- NOTE | 2025-02-24 00:39 | ED_ITS ---
HPI HPI - Back Pain/Injury General Chief Complaint: Back Pain/Injury Stated Complaint: HEADACHE Time Seen by Provider: 02/24/25 00:35 Source: patient Mode of arrival: Wheelchair Limitations: no limitations History of Present Illness HPI Narrative: past history of left sciatica. States episode last year. 2 night ago after getting off of work noticed pain left buttocks area. Now has pain radiating down his left leg and his foot is tingling. No extremity weakness. No fever or injury. No loss of control or bowel or bladder. No abdominal pain Related Data Home Medications ?Medication ?Instructions ?Recorded ?Confirmed No Known Home Medications 07/16/2401/29 Allergies Allergy/AdvReac Type Severity Reaction Status Date / Time No Known Drug Allergies Allergy Verified 02/24/25 00:22 Opioid HPI Opioid Management Most Recent Opioid Data: Last Pain Scale 8 Today, 00:38 Last ED Pain Assessment Today, 00:38 Review of Systems ROS Status of ROS 10 or more systems reviewed and unremark able except as noted in history and below PFSH PFSH Social History Smoking status: Current some day smoker Little interest or pleasure in doing things: not at all Feeling down, depressed, or hopeless: not at all Exam Constitutional Vital Signs, click to edit/add: Last Vital Signs Temp 98.0 F 02/24/25 00:16 Pulse 89 02/24/25 00:16 Resp 18 02/24/25 00:16 BP 145/86 H 02/24/25 00:16 Pulse Ox 99 02/24/25 00:16 O2 Del Method Room Air 02/24/25 00:16 Common normals: no apparent distress, average body habitus, oriented x3, no limitations, healthy appearing, alert and well nourished [facility] Common normals: normocephalic and head/scalp atraumatic Respiratory Common normals: normal respiratory effort, no retractions, no use of accessory muscles and clear to auscultation bilaterally Cardio Common normals: regular rate, regular rhythm, S1 normal heart sound and S2 normal heart sound GI Common normals: Normal to inspection, nondistended, normoactive bowel sounds present, soft to palpation and non-tender Back & Pelvis Other: left SI tenderness Neuro Common normals: oriented x3, CN's II-XII intact bilaterally, moves all extremities and no focal motor deficits Psych Appearance: grossly normal Course Vital Signs Vital signs: Vital Signs Temperature 98.0 F 02/24/25 00:16 Pulse Rate 89 02/24/25 00:16 Respiratory Rate 18 02/24/25 00:16 Blood Pressure 145/86 H 02/24/25 00:16 Pulse Oximetry 99 02/24/25 00:16 Oxygen Delivery Method Room Air 02/24/25 00:16 Temperature 98.0 F 02/24/25 00:16 Pulse Rate 89 02/24/25 00:16 Respiratory Rate 18 02/24/25 00:16 Blood Pressure 145/86 H 02/24/25 00:16 Pulse Oximetry 99 02/24/25 00:16 Oxygen Delivery Method Room Air 02/24/25 00:16 MDM - Back Pain/Injury MDM Narrative Medical decision making narrative: patient presents with left sciatica pain. Similar pain in the past . medicated in the department and is now feeling better. Able to walk and tolerate the pain. Discharged with a prescription of prednisone and advised to follow up with his doctor for recheck Lab Data Labs: Lab Results 02/24/25 Range/Units 00:50 WBC 8.5 (4.0-11.0) 10^3/uL RBC 5.60 (4.70-6.10) 10^6/uL Hgb 15.4 (14.0-18.0) g/dL Hct 44.9 (42.0-54.0) % MCV 80.2 (80.0-94.0) fL MCH 27.5 (25.9-34.0) pg MCHC 34.3 (29.9-35.2) g/dL RDW 13.4 (11.0-15.0) % Plt Count 261 (150-450) 10^3/uL MPV 9.8 (9.5-13.5) fL Neut % (Auto) 51.0 (43.0-75.0) % Lymph % (Auto) 39.2 (20.5-60.0) % [place] % (Auto) 4.8 (1.7-12.0) % Eos % (Auto) 4.0 (0.9-7.0) % Baso % (Auto) 0.9 (0.2-2.0) % Neut # (Auto) 4.3 (1.4-6.5) 10^3/uL Lymph # (Auto) 3.3 (1.2-3.8) 10^3/uL Screven # (Auto) 0.4 (0.3-0.8) 10^3/uL Eos # (Auto) 0.3 (0.0-0.7) 10^3/uL Baso # (Auto) 0.1 (0.0-0.1) 10^3/uL Abs Immat Gran (auto) 0.01 (0.00-0.03) 10^3/uL Imm/Tot Granulo (auto) 0.1 (0.0-0.5) % ESR 22 H (<=15) mm/hr Sodium 141 (136-145) mmol/L Potassium 4.3 (3.5-5.1) mmol/L Chloride 104 (98-107) mmol/L Carbon Dioxide 26.7 (21.0-32.0) mmol/L Anion Gap 14.6 BUN 14.0 (7.0-18.0) mg/dL Creatinine 1.07 (0.70-1.30) mg/dL Est GFR ( Amer) >60 (>=60 mL/min/1.73m^2) Est GFR (Non-Af Amer) >60 (>=60 mL/min/1.73m^2) BUN/Creatinine Ratio 13.1 Glucose 134 H (74-106) mg/dL Calcium 9.3 (8.5-10.1) mg/dL C-Reactive Protein <0.50 (<=0.50) mg/dL Discharge Plan Discharge Chief Complaint: Back Pain/Injury Clinical Impression: Left sciatic nerve pain Patient Disposition: Home, Self-Care Prescriptions / Home Meds: No Action No Known Home Medications Print Language: [place] Instructions: Sciatica (ED) Additional Instructions: follow up with your doctor in the next 2-3 days for recheck Referrals: Physician,Non-Staff, MD [Primary Care Provider] - 1 week
--- NOTE | 2025-02-24 01:00 | PC.NURSE ---
Pt presents to ER for sciatica pain Pt was dropped off to the ER by his friends and was laying accross a chair in the lobby when this nurse went to call for him This nurse then assisted patient into getting in a wheelchair and taking him back to the ER room Pt states he is having a sciatica flare up - this has happened before Pt describes the pain as a sharp stabbing pain that starts in his left hip and travels down the leg with occassional numbness and tingling in the distal portion Pt states he took Tylenol at home and has done hot baths and ice and stretches but nothing is helping and he can no longer bare the pain Pt states that 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
[2025-02-24] MEDS: MAGNESIUM SULFATE IN WATER 2 GM/50 ML PREMIX IV (01:04)
[2025-02-24] MEDS: METHYLPREDNISOLONE SOD SUCC PF 125 MG/2 ML VIAL IVP (01:04)
[2025-02-24] MEDS: ORPHENADRINE 60 MG/2 ML VIAL IV (01:04)
[2025-02-24 01:16] LABS: Hematocrit 44.9 % (42.0-54.0); Hemoglobin 15.4 g/dL (14.0-18.0); Immature Granulocytes Abs Auto 0.01 10^3/uL (0.00-0.03); Immature Granulocytes Pct Auto 0.1 % (0.0-0.5); Lymphocytes Absolute Auto 3.3 10^3/uL (1.2-3.8); Mean Corpuscular HGB Conc 34.3 g/dL (29.9-35.2); Mean Corpuscular Hemoglobin 27.5 pg (25.9-34.0); Mean Corpuscular Volume 80.2 fL (80.0-94.0); Platelet Count 261 10^3/uL (150-450); Red Blood Count 5.60 10^6/uL (4.70-6.10); White Blood Count 8.5 10^3/uL (4.0-11.0)
[2025-02-24 01:29] LABS: Anion Gap 14.6; Blood Urea Nitrogen 14.0 mg/dL (7.0-18.0); Calcium 9.3 mg/dL (8.5-10.1); Carbon Dioxide 26.7 mmol/L (21.0-32.0); Chloride 104 mmol/L (98-107); Estimated GFR (African America >60 (>=60 mL/min/1.73m^2); Estimated GFR (Non-African Ame >60 (>=60 mL/min/1.73m^2); Glucose 134 mg/dL (74-106); Potassium 4.3 mmol/L (3.5-5.1); Sodium 141 mmol/L (136-145)
[2025-02-24] MEDS: KETOROLAC TROMETHAMINE 30 MG/ML VIAL IVP (03:16)
== END 2025-02-24 03:59 | disposition home or self-care (01) ==
PROVIDERS: Emergency Provider Internal Medicine
DX: M54.32 Sciatica, left side (principal); F17.200 Nicotine dependence, unspecified, uncomplicated
CPT/HCPCS: 36415; 80048; 85025; 85652; 86140; 96365; 96375; 99284; J1885; J2360; J2919; J3475

== ENCOUNTER 2025-03-01 17:24 | Emergency (ER) | payer SELFPAY ==
--- OUTSIDE RECORDS SUMMARY | 2025-03-01 17:32 | XMS_ITS | CCD ---
Author Organization [facility] Care Team Providers Care Director Of Pupil Personnel Program Name Role Phone PAMELA, DR BERNADETTE Juarez [...] Facility COVID Quick Testingon 2021 Result Negative [facility] Other COVID Quick Testingon 2021 Result Negative [facility] Other SYMPTOMATIC COVID-19 ANTIGEN on 03-24-2021 EUA Statement SEE BELOW Normal [facility] Comment on above: Result Comment: This [...] sooner. Performed By: #### C VDAGS #### [facility] [address] [place] [address] Sapphire Velazquez SARS-CoV-2 (COVID-19) RNA ALINA+probe Ql (Unsp spec) Positive Invalid Interpretation Code NEGATIVE [facility] Comment on above: Performed By: #### CVDAGS #### [facility] [address] [id number] Sapphire Velazquez XR CHEST 1 Von 03-24-2021 [...] EDDIE SMALL Date: 2021-03-24 12:56 Normal [facility] Vital Signs Date Time Vital Sign Value Performing Clinician Facility 05-13-2022 19:10-0400 Body height 177.8 cm Hailey Bustamante Other [facility] Other 05-13-2022 19:10-0400 Body mass index (BMI) [Ratio] 33.69 kg/m2 Hailey Bustamante Other [facility] Other 05-13-2022 19:10-0400 Body temperature 98.2 [degF] Hailey Bustamante Other [facility] Other 05-13-2022 19:10-0400 Body weight 106.51 kg Hailey Bustamante Other [facility] Other 05-13-2022 19:10-0400 Diastolic blood pressure 87 mm[Hg] Hailey Bustamante Other [facility] Other 05-13-2022 19:10-0400 Respiratory rate 18 /min Hailey Bustamante Other [facility] Other 05-13-2022 19:10-0400 SaO2% (BldA) [Mass fraction] 99 % Hailey Bustamante Other [facility] Other 05-13-2022 19:10-0400 Systolic blood pressure 134 mm[Hg] Hailey Bustamante Other [facility] Other 05-06-2022 19:20-0400 Body height 177.8 cm Cassie Herring Other [facility] Other 05-06-2022 19:20-0400 Body mass index (BMI) [Ratio] 33 kg/m2 Cassie Herring Other [facility] Other 05-06-2022 19:20-0400 Body temperature 98.9 [degF] Cassie Herring Other [facility] Other 05-06-2022 19:20-0400 Body weight 104.33 kg Cassie Herring Other [facility] Other 05-06-2022 19:20-0400 Respiratory rate 18 /min Cassie Herring Other [facility] Other 05-06-2022 19:20-0400 SaO2% (BldA) [Mass fraction] 98 % Cassie Herring Other [facility] Other 04-11-2022 19:30-0400 Body height 177.8 cm Nola Proctor Other [facility] Other 04-11-2022 19:30-0400 Body mass index (BMI) [Ratio] 30.85 kg/m2 Nola Proctor Other [facility] Other 04-11-2022 19:30-0400 Body weight 97.52 kg Nola Proctor Other [facility] Other Encounters Encounter Date Encounter Type Care Provider Facility Start: 05-13-2022 End: 05-13-2022 ambulatory Hailey Bustamante Other [facility] Other Start: 05-13-2022 Office outpatient vi sit 15 minutes Hailey Bustamante [facility] Start: 05-06-2022 End: 05-06-2022 ambulatory Cassie Herring Other [facility] Other Start: 05-06-2022 Office outpatient vi sit 25 minutes Cassie Herring [facility] Start: 04-11-2022 End: 04-11-2022 ambulatory Nola Proctor Other [facility] Other Start: 04-11-2022 Office outpatient ne w 20 minutes Nolakari Proctor [facility] Start: 03-24-2021 End: 03-24-[address] BERNADETTE SANTIAGO Facility:[facility] Payers Date Payer Category Payer Unknown [id number] 1959 Self-pay [id number] Unknown [id number] Social History Date Type Detail Facility Sex Assigned At [facility] Other Evaluation note 05-13-2022 Note Date & [...] 3-4 days if s/s persists or worsens. [facility] Other Evaluation note 05-06-2022 Note Date & [...] understanding and is agreeable to treatment plan [facility] Other Evaluation note 04-11-2022 Note Date & [...] no improvement in 2 to 3 days [facility] Other Summary Purpose Family History No Family [...] BE BASED ON THE PRIMARY CLINICAL RECORDS. [employer] provides no warranty or guarantee of the accuracy or completeness of information in this document.
[2025-03-01 17:39] VITALS: BP 137/99; PULSE 90; TEMP 36.6; O2SAT 98; BMI 31.2
--- NOTE | 2025-03-01 18:23 | XR_ITS ---
[address] [id number] Patient Name: WADE ALLEN MRN: [id number] date: 1985 Sex: M Assigned Patient Location: ED.MAIN Current Patient Location: ED.MAIN Accession/Order Number: [id number] Exam Date: 03/01/2025 19:25 Report Date: 03/01/2025 19:26 At the request of: VALENTINA CAZARES MD Procedure: XR lumbar spine 2-3V XR lumbar spine 2-3V 03/01/2025 6:54 PM SIGNS AND SYMPTOMS: ^Atraumatic pain PROTOCOLS: Frontal and lateral radiographs of the lumbar spine COMPARISON: 01/31/2024 FINDINGS: The alignment, development and bony structures are normal. There is no fracture or destructive lesion. Mild disc height loss is noted at L5-S1. There is minimal anterior osteophyte formation at L4-5. Degenerative changes are redemonstrated in the sacroiliac joints, left greater than right. XR/XR lumbar spine 2-3V IMPRESSION: No fracture or dislocation. Similar degenerative changes are noted, greatest in the left sacroiliac joint. Impression dictated by: Bruno Mora M.D. 03/01/2025 7:26 PM Dictation Location: [place] [address] Electronically authenticated by: [id number] Y Date: 03/01/2025 19:26
--- NOTE | 2025-03-01 18:32 | ED.GENADUL1 ---
HPI HPI - General Adult General Chief complaint: Back Pain/Injury Stated complaint: back pain Time Seen by Provider: 03/01/25 18:18 Source: patient Mode of arrival: walk-in Limitations: no limitations History of Present Illness HPI narrative: 39-year-old male presents for midline lower back pain. He gives no history of trauma and it is going into his left buttock. Here several days ago and diagnosed with sciatica and placed on prednisone. Has not gotten better. He has a history of sciatica and had x-rays about a year ago. No history of any surgeries. No complaints of weakness or numbness in his legs. Related Data Home Medications ?Medication ?Instructions ?Recorded ?Confirmed No Known Home Medications 07/16/24 02/24/25 Allergies Allergy/AdvReac Type Severity Reaction Status Date / Time No Known Drug Allergies Allergy Verified 03/01/25 17:38 Opioid HPI Opioid Management Most Recent Opioid Data: Last Pain Scale 8 02/24/25, 00:38 Last ED Pain Assessment 02/24/25, 00:38 Review of Systems ROS Narrative A ten point review of systems is negative except as noted above. PFSH PFSH Social History Smoking status: Current some day smoker Little interest or pleasure in doing things: not at all Feeling down, depressed, or hopeless: not at all Exam Narrative Exam Narrative: Nurses note and vital signs reviewed and patient is not hypoxic. General: The patient appears well and in no apparent distress. Patient is resting on cart. Skin: Warm, dry, no pallor noted. There is no rash noted. Head: Normocephalic, atraumatic Eye: Normal conjunctiva, no drainage Ears, Nose, Mouth, and Throat: oral mucosa is moist. Nares patent. Cardiovascular: Regular Rate and Rhythm Respiratory: Patient is in no distress, no accessory muscle use, lungs are clear to auscultation, no wheezing, rales or rhonchi Back: His back is examined. There is no bruise or abrasion or focal area of tenderness to palpation. Motor strength intact in his lower extremities which are not swollen. GI: Normal bowel sounds, no tenderness to palpation, no masses appreciated. No rebound, guarding, or rigidity noted. Musculoskeletal: The patient has no evidence of calf tenderness, no pitting edema, symmetrical pulses noted bilaterally Neurological: A&O, normal speech Psychiatric: Cooperative Constitutional Vital Signs, click to edit/add: Last Vital Signs Temp 97.8 F 03/01/25 17:39 Pulse 90 03/01/25 17:39 Resp 16 03/01/25 17:39 BP 137/99 H 03/01/25 17:39 Pulse Ox 98 03/01/25 17:39 O2 Del Method Room Air 03/01/25 17:39 Course Vital Signs Vital signs: Vital Signs Temperature 97.8 F 03/01/25 17:39 Pulse Rate 90 03/01/25 17:39 Respiratory Rate 16 03/01/25 17:39 Blood Pressure 137/99 H 03/01/25 17:39 Pulse Oximetry 98 03/01/25 17:39 Oxygen Delivery Method Room Air 03/01/25 17:39 Temperature 97.8 F 03/01/25 17:39 Pulse Rate 90 03/01/25 17:39 Respiratory Rate 16 03/01/25 17:39 Blood Pressure 137/99 H 03/01/25 17:39 Pulse Oximetry 98 03/01/25 17:39 Oxygen Delivery Method Room Air 03/01/25 17:39 Medical Decision Making MDM Narrative Medical decision making narrative: Toradol and Norflex were given IM. The patient was signed out to Dr. Arechiga at change of shift with lumbar x-rays and urinalysis pending. Discharge Plan Discharge Patient Disposition: Still a Patient
[2025-03-01] MEDS: KETOROLAC TROMETHAMINE 60 MG/2 ML VIAL IM (18:55)
[2025-03-01] MEDS: ORPHENADRINE 60 MG/2 ML VIAL IM (18:58)
== END 2025-03-01 20:13 | disposition home or self-care (01) ==
PROVIDERS: Emergency Provider Emergency Medicine
DX: M54.50 Low back pain, unspecified (principal); F17.200 Nicotine dependence, unspecified, uncomplicated
CPT/HCPCS: 72100; 81001; 96372; 99285; J1885; J2360